=== PATIENT | female | born 1995 ===

== ENCOUNTER 2022-12-03 00:35 | Emergency (ER) | payer OTHER ==
[~2022-12-03] VITALS: Ht 154.9 cm; Wt 165.0 kg
[2022-12-03 00:50] VITALS: BP 135/98
[2022-12-03] MEDS ORDERED: CEPH-585 PO (01:33)
[2022-12-03] MEDS ORDERED: SULF1TAB45 PO (01:33)
[2022-12-03] MEDS ORDERED: sulfamethoxazole/trimethoprim DS (800/160mg) tablet PO ONE (01:35)
[2022-12-03] MEDS ORDERED: cephalexin 250mg capsule PO ONE (01:35)
== END 2022-12-03 01:49 | disposition home or self-care (01) ==
LOC: ER 00:36
DX: A49.02 Methicillin resistant Staphylococcus aureus infection, unspecified site (principal); F17.210 Nicotine dependence, cigarettes, uncomplicated; Z88.8 Allergy status to other drugs, medicaments and biological substances; Z79.2 Long term (current) use of antibiotics; Z79.899 Other long term (current) drug therapy
CPT/HCPCS: 99283

== ENCOUNTER 2022-12-23 21:58 | Emergency (ER) | payer OTHER ==
[~2022-12-23] VITALS: Ht 154.9 cm; Wt 77.6 kg
[~2022-12-23 21:58] MED LIST: CEPH-585 PO; SULF1TAB45 PO
[2022-12-23 22:13] VITALS: BP 148/97; PULSE 104; RESP 18; TEMP 98.9; O2SAT 100
[2022-12-24] MEDS ORDERED: acetaminophen 325mg tablet PO ONE (00:10)
[2022-12-24] MEDS ORDERED: ibuprofen tablet 400 MG TABLET PO ONE (00:10)
== END 2022-12-24 00:19 | disposition home or self-care (01) ==
LOC: ER 22:00
DX: M79.675 Pain in left toe(s) (principal); Z88.5 Allergy status to narcotic agent; Z79.2 Long term (current) use of antibiotics
CPT/HCPCS: 73630; 99283